=== PATIENT | female | born 1960 | race Caucasian/White ===

== ENCOUNTER 2018-12-31 13:16 | Emergency (ER) | payer BC ==
[~2018-12-31] VITALS: Ht 160 cm; Wt 63.0 kg
[2018-12-31] MEDS ORDERED: PHENYTOIN SODIUM 500 MG in SODIUM CHLORIDE 0.9% 50 ML IV ONE (14:45)
[2018-12-31] MEDS ORDERED: IBUPROFEN 600MG TABLET PO ONE (15:00)
[2018-12-31 18:28] VITALS: BP 159/99
== END 2018-12-31 18:30 | disposition home or self-care (01) ==
LOC: ER 13:28
DX: G40.909 Epilepsy, unspecified, not intractable, without status epilepticus (principal); S92.352A Displaced fracture of fifth metatarsal bone, left foot, initial encounter for closed fracture; V47.5XXA Car driver injured in collision with fixed or stationary object in traffic accident, initial encounter; Y93.89 Activity, other specified; Y92.410 Unspecified street and highway as the place of occurrence of the external cause
CPT/HCPCS: 29515; 36415; 73630; 80185; 96365; 99284; J1165